=== PATIENT | male | born 1975 | race Two or more races ===

== ENCOUNTER 2022-01-03 07:29 | Inpatient (IN) | payer BC, OTHER ==
[~2022-01-03] VITALS: Ht 167.6 cm; Wt 79.4 kg
[2022-01-03] MEDS ORDERED: ASPirin 81 mg TAB PO ONE (08:00)
[2022-01-03] MEDS ORDERED: SODIUM CHLORIDE 0.9% 1,000 ML IV ONE ×2 (09:00→13:15)
[2022-01-03 09:11] LABS: Basophils # (auto) 0 10 ^3/uL (0-0.2); Basophils % (auto) 0.7 % (0.0-2.0); Eosinophils # (auto) 0 10 ^3/uL (0-0.8); Eosinophils % (auto) 0.7 % (0.0-7.0); Hematocrit 44.3 % (41.0-53.0); Hemoglobin 15.4 g/dL (13.5-17.5); Lymphocytes # (auto) 0.8 10 ^3/uL (0.4-5.4); Lymphocytes % (auto) 14.5 % (10.0-50.0); Mean Corpuscular Hemoglobin 33.3 pg (28.0-32.0); Mean Corpuscular Hgb Conc. 34.9 g/dL (32.0-36.0); Mean Corpuscular Volume 95.3 fL (80.0-100.0); Monocytes # (auto) 0.6 10 ^3/uL (0-1.3); Monocytes % (auto) 10.3 % (0.0-12.0); Neutrophils % (auto) 73.8 % (37.0-80.0); Nucleated Red Blood Cells % 0.1 %; Red Blood Cells 4.65 10^6/uL (4.5-5.90); White Blood Cell 5.5 10^3/uL (4.4-10.8)
[2022-01-03] MEDS ORDERED: chlordiazePOXIDE HCL 25 MG CAP PO ONE (09:30)
[2022-01-03 10:46] LABS: Potassium 3.6 mmol/L (3.5-5.1)
[2022-01-03 10:59] LABS: Albumin 4.5 g/dL (3.4-5.0); BUN/Creatinine Ratio 11.7; Bilirubin, Total 1.4 mg/dL (0.2-1.0); Calcium 9.8 mg/dL (8.5-10.1); Magnesium 2.1 mg/dL (1.6-2.6); Total Protein 8.1 g/dL (6.4-8.2)
[2022-01-03] MEDS ORDERED: NITROGLYCERIN 0.4 MG SL TAB SL ONE (11:15)
[2022-01-03 11:23] LABS: Urine Bacteria NONE SEEN /hpf (None Seen); Urine Blood Negative /uL (Negative); Urine Mucus FEW (None Seen); Urine WBC 1 /hpf (0 - 3)
[2022-01-03] MEDS ORDERED: PANTOPRAZOLE 40 MG/10 ML VIAL INJ IV ONE (13:15)
[2022-01-03] MEDS ORDERED: THIAMINE 100mg/ml INJ (200mg/2ml VIAL) IV ONE (13:15)
[2022-01-03] MEDS ORDERED: NITROGLYCERIN 0.4 MG SL TAB SL PRN (13:15)
[2022-01-03] MEDS ORDERED: MORPHINE SULFATE INJECTION 2 MG/ML SYRG IV PRN ×2 (13:15→14:45)
[2022-01-03] MEDS ORDERED: METOPROLOL SUCCINATE XL 50 MG TAB PO ONE (14:45)
[2022-01-03] MEDS ORDERED: BENAZEPRIL HCL 10 MG TAB PO ONE (14:45)
[2022-01-03] MEDS ORDERED: IPRATROPIUM BROM 0.5 MG/2.5ML INH SOL NEB ONE (14:45)
[2022-01-03] MEDS ORDERED: DOCUSATE SOD 100 MG CAP PO PRN (14:45)
[2022-01-03] MEDS ORDERED: MULTIPLE VITAMINS W/ MINERALS TAB PO ONE (14:45)
[2022-01-03] MEDS ORDERED: FOLIC ACID 1 MG TAB PO ONE (14:45)
[2022-01-03] MEDS ORDERED: NIFEdipine ER 30 MG TAB PO ONE (14:45)
[2022-01-03] MEDS ORDERED: HYDROcodone-ACET 5/325MG TAB PO PRN ×2 (14:45)
[2022-01-03] MEDS: chlordiazePOXIDE HCL 25 MG CAP PO SCH ×2 (14:45→21:30)
[2022-01-03] MEDS ORDERED: hydrALAZINE HCL 20 MG/ML VL IV PRN (14:45)
[2022-01-03] MEDS ORDERED: LORazepam 2MG/ML-1ML VIAL IV PRN (14:45)
[2022-01-03] MEDS ORDERED: ONDANSETRON HCL 4 MG/2 ML VIAL IV PRN (14:45)
[2022-01-03] MEDS ORDERED: LACTULOSE 20Gm/30ML SOLN PO PRN (14:45)
[2022-01-03] MEDS ORDERED: HYDROcodone-ACET 5/325MG TAB PO ONE (14:45)
[2022-01-03] MEDS: SODIUM CHLORIDE 0.9% 1,000 ML IV SCH (15:01)
[2022-01-03 15:28] LABS: Phosphorus 3.5 mg/dL (2.5-4.90)
[2022-01-03 16:23] LABS: INR 1.13 (0.9-1.15); Partial Thromboplastin Time 28.5 sec (23.6-33.0)
[2022-01-03] MEDS ORDERED: IPRATROPIUM BROM 0.5 MG/2.5ML INH SOL NEB SCH (18:00)
[2022-01-03 21:06] VITALS: BP 152/99
[2022-01-03] MEDS: PANTOPRAZOLE 40 MG/10 ML VIAL INJ IV SCH (21:29)
[2022-01-03 22:00] VITALS: BP 152/99
[2022-01-03] MEDS ORDERED: ATORVASTATIN 20 MG TAB PO SCH (22:00)
[2022-01-04] MEDS: SODIUM CHLORIDE 0.9% 1,000 ML IV SCH (03:47)
[2022-01-04 05:02] VITALS: BP 116/73
[2022-01-04] MEDS: chlordiazePOXIDE HCL 25 MG CAP PO SCH ×3 (06:03→10:04)
[2022-01-04 06:28] LABS: Basophils # (auto) 0 10 ^3/uL (0-0.2); Basophils % (auto) 0.5 % (0.0-2.0); Eosinophils # (auto) 0.1 10 ^3/uL (0-0.8); Eosinophils % (auto) 3.4 % (0.0-7.0); Hemoglobin 14.6 g/dL (13.5-17.5); Lymphocytes # (auto) 1.2 10 ^3/uL (0.4-5.4); Lymphocytes % (auto) 28.1 % (10.0-50.0); Mean Corpuscular Hemoglobin 33.1 pg (28.0-32.0); Mean Corpuscular Hgb Conc. 34.8 g/dL (32.0-36.0); Mean Corpuscular Volume 95.3 fL (80.0-100.0); Monocytes # (auto) 0.3 10 ^3/uL (0-1.3); Neutrophils # (auto) 2.6 10 ^3/uL (1.6-8.6); Nucleated Red Blood Cells % 0.1 %; Red Blood Cells 4.41 10^6/uL (4.5-5.90); Red Cell Distribution Width 13.2 % (11.8-14.3); White Blood Cell 4.2 10^3/uL (4.4-10.8)
[2022-01-04 06:47] LABS: INR 1.11 (0.9-1.15); Partial Thromboplastin Time 28.4 sec (23.6-33.0)
[2022-01-04 06:57] LABS: Albumin 3.6 g/dL (3.4-5.0); CRP High Sensitivity 0.23 mg/dL (< 0.3); Calcium 9.1 mg/dL (8.5-10.1); Magnesium 1.9 mg/dL (1.6-2.6); Potassium 3.7 mmol/L (3.5-5.1)
[2022-01-04 07:02] LABS: BUN/Creatinine Ratio 13.5; Bilirubin, Total 1.9 mg/dL (0.2-1.0); Phosphorus 3.2 mg/dL (2.5-4.90); Total Protein 6.6 g/dL (6.4-8.2); Uric Acid 3.4 mg/dL (3.5-7.2)
[2022-01-04 09:00] VITALS: BP 137/86
[2022-01-04] MEDS ORDERED: MULTIPLE VITAMINS W/ MINERALS TAB PO SCH (10:00)
[2022-01-04] MEDS ORDERED: BENAZEPRIL HCL 10 MG TAB PO SCH (10:00)
[2022-01-04] MEDS: ENOXAPARIN SOD 40 MG/0.4 ML SYRINGE SC SCH ×2 (10:00→10:08)
[2022-01-04] MEDS ORDERED: NIFEdipine ER 30 MG TAB PO SCH (10:00)
[2022-01-04] MEDS ORDERED: METOPROLOL SUCCINATE XL 50 MG TAB PO SCH (10:00)
[2022-01-04] MEDS ORDERED: ASPirin 81 mg TAB PO SCH (10:00)
[2022-01-04] MEDS ORDERED: THIAMINE HCL 100 MG TAB PO SCH (10:00)
[2022-01-04] MEDS ORDERED: FOLIC ACID 1 MG TAB PO SCH (10:00)
[2022-01-04] MEDS: PANTOPRAZOLE 40 MG/10 ML VIAL INJ IV SCH (10:02)
[2022-01-04 12:02] LABS: Hepatitis A Ab IgM Negative; Hepatitis B Core IgM Negative; Hepatitis C Antibody Negative (Negative)
[2022-01-04 13:00] VITALS: BP 127/82
[2022-01-04] MEDS ORDERED: MAGNESIUM SULFATE 1GM/100ML 100 ML IV ONE (14:45)
[2022-01-04] MEDS ORDERED: SODIUM CHLORIDE 0.9% 1,000 ML IV SCH (14:45)
[2022-01-04] MEDS ORDERED: ATORVASTATIN 20 MG TAB PO SCH (22:00)
[2022-01-05] MEDS ORDERED: chlordiazePOXIDE HCL 25 MG CAP PO SCH (10:00)
[2022-01-06] MEDS ORDERED: chlordiazePOXIDE HCL 25 MG CAP PO SCH (07:00)
== END 2022-01-04 15:55 | disposition left against medical advice (07) | DRG 280 ==
LOC: EDBD 07:29 → ER 07:29 → TELE 13:13 → TELE-CENTR 20:04
PROVIDERS: ADMIT Hospitalist; ATTEND Internal Medicine
DX: I11.0 Hypertensive heart disease with heart failure (principal); I21.A1 Myocardial infarction type 2; I50.31 Acute diastolic (congestive) heart failure; I16.9 Hypertensive crisis, unspecified; F10.239 Alcohol dependence with withdrawal, unspecified; K29.20 Alcoholic gastritis without bleeding; K70.10 Alcoholic hepatitis without ascites; E88.81 Metabolic syndrome and other insulin resistance; K76.0 Fatty (change of) liver, not elsewhere classified; E66.01 Morbid (severe) obesity due to excess calories; F41.9 Anxiety disorder, unspecified; E78.5 Hyperlipidemia, unspecified; Z53.29 Procedure and treatment not carried out because of patient's decision for other reasons; Z20.822 Contact with and (suspected) exposure to COVID-19; Z68.28 Body mass index [BMI] 28.0-28.9, adult; Z71.41 Alcohol abuse counseling and surveillance of alcoholic
CPT/HCPCS: 36415; 71045; 76705; 80053; 80061; 80074; 81001; 82728; 83036; 83615; 83690; 83735; 83880; 84100; 84443; 84484; 84550; 85025; 85379; 85610; 85652; 85730; 86141; 87086; 87426; 93005; 93306; 96361; 96374; 96375; C9113; G0378